=== PATIENT | male | born 1975 | race Caucasian/White ===

== ENCOUNTER 2021-03-09 02:46 | Emergency (ER) | payer OTHER ==
[2021-03-09 03:37] LABS: BASOPHIL 0.5 % (0-2); EOSINOPHIL 1.4 % (0-5); HCT 48.6 % (42.0-52.0); HGB 17.1 g/dl (13.2-18.0); MCHC 35.2 g/dL (32.0-36.0); MONOCYTE 9.7 % (0-12); MPV 9.9 fL (6.0-9.5); NEUTROPHIL 65.9 % (41-80); NRBC 0; PLT 300 K/uL (150-400); RBC 5.34 M/uL (4.70-6.00); RDW 13.6 % (11.5-14.0); WBC 21.6 K/uL (4.0-10.5)
[2021-03-09 03:48] LABS: INR 0.95 (0.9-1.2); PROTHROMBIN TIME 12.1 SECONDS (11.8-13.4); PTT 25.8 SECONDS (24.4-34.7)
[2021-03-09 03:54] LABS: ALBUMIN 3.7 g/dL (3.4-5.0); BILIRUBIN - TOTAL 0.2 mg/dL (0.2-1.0); CREATININE 0.93 mg/dL (0.67-1.17); GLOBULIN (CALCULATION) 3.7 g/dL; POTASSIUM 3.6 mmol/L (3.5-5.1); TOTAL PROTEIN 7.4 g/dL (6.4-8.2)
== END 2021-03-09 08:25 | disposition other institution (70) ==
LOC: FER 02:46
PROVIDERS: Emergency Medicine Emergency Medical Services
DX: I21.4 Non-ST elevation (NSTEMI) myocardial infarction (principal); I10 Essential (primary) hypertension; E78.5 Hyperlipidemia, unspecified; F17.210 Nicotine dependence, cigarettes, uncomplicated; Z82.49 Family history of ischemic heart disease and other diseases of the circulatory system; Z20.822 Contact with and (suspected) exposure to COVID-19; Z79.899 Other long term (current) drug therapy; Z88.1 Allergy status to other antibiotic agents; Z88.8 Allergy status to other drugs, medicaments and biological substances
CPT/HCPCS: 36415; 71045; 80053; 82550; 82553; 83690; 84484; 85025; 85379; 85610; 85730; 93005; J1644; J2270; J2405; J7030; U0002

== ENCOUNTER 2021-05-09 19:03 | Emergency (ER) | payer OTHER ==
[2021-05-09 19:31] LABS: BASOPHIL 0.5 % (0-2); EOSINOPHIL 1.6 % (0-5); HCT 48.6 % (42.0-52.0); HGB 16.8 g/dl (13.2-18.0); LYMPHOCYTE 25.3 % (15-48); MCH 31.1 pg (25.0-31.0); MCHC 34.6 g/dL (32.0-36.0); MONOCYTE 7.4 % (0-12); MPV 9.9 fL (6.0-9.5); NEUTROPHIL 64.8 % (41-80); NRBC 0; PLT 277 K/uL (150-400); RDW 13.5 % (11.5-14.0); WBC 13.5 K/uL (4.0-10.5)
[2021-05-09 19:47] LABS: ALBUMIN 3.9 g/dL (3.4-5.0); BILIRUBIN - TOTAL 0.5 mg/dL (0.2-1.0); BUN/CREAT RATIO (CALC) 13.6 RATIO; CREATININE 0.81 mg/dL (0.67-1.17); GLOBULIN (CALCULATION) 3.8 g/dL; POTASSIUM 3.1 mmol/L (3.5-5.1); TOTAL PROTEIN 7.7 g/dL (6.4-8.2)
== END 2021-05-09 22:45 | disposition home or self-care (01) ==
LOC: FER 19:03
PROVIDERS: Emergency Medicine
DX: R07.89 Other chest pain (principal); I10 Essential (primary) hypertension; I25.2 Old myocardial infarction; I25.10 Atherosclerotic heart disease of native coronary artery without angina pectoris; F17.200 Nicotine dependence, unspecified, uncomplicated; Z79.82 Long term (current) use of aspirin; Z79.02 Long term (current) use of antithrombotics/antiplatelets; Z79.899 Other long term (current) drug therapy
CPT/HCPCS: 36415; 71045; 80053; 84484; 85025; 85379

== ENCOUNTER 2021-11-09 20:32 | Emergency (ER) | payer OTHER ==
[2021-11-09 20:54] LABS: BASOPHIL 0.4 % (0-2); EOSINOPHIL 1.7 % (0-5); HCT 45.4 % (42.0-52.0); LYMPHOCYTE 20.8 % (15-48); MCHC 35.2 g/dL (32.0-36.0); MCV 90.8 fL (78.0-100.0); MONOCYTE 6.9 % (0-12); NEUTROPHIL 69.9 % (41-80); NRBC 0; PLT 266 K/uL (150-400); RDW 13.5 % (11.5-14.0); WBC 15.4 K/uL (4.0-10.5)
[2021-11-09 21:14] LABS: ALBUMIN 3.7 g/dL (3.4-5.0); BILIRUBIN - TOTAL 0.4 mg/dL (0.2-1.0); BUN/CREAT RATIO (CALC) 9.2 RATIO; CREATININE 0.87 mg/dL (0.67-1.17); GLOBULIN (CALCULATION) 3.5 g/dL; MAGNESIUM 1.2 mg/dL (1.8-2.4); POTASSIUM 2.9 mmol/L (3.5-5.1); TOTAL PROTEIN 7.2 g/dL (6.4-8.2)
[2021-11-09 21:59] LABS: CORONAVIRUS 2019 SARS-COV-2 NEGATIVE (NEGATIVE); INFLUENZA A NAA NEGATIVE (NEGATIVE)
[2021-11-10 01:05] LABS: BUN/CREAT RATIO (CALC) 9.2 RATIO; CREATININE 0.76 mg/dL (0.67-1.17); POTASSIUM 3.4 mmol/L (3.5-5.1)
== END 2021-11-10 01:34 | disposition home or self-care (01) ==
LOC: FER 20:32
PROVIDERS: Internal Medicine
DX: R07.89 Other chest pain (principal); E87.6 Hypokalemia; E83.42 Hypomagnesemia; I10 Essential (primary) hypertension; F17.210 Nicotine dependence, cigarettes, uncomplicated; Z28.310 Unvaccinated for COVID-19; Z20.822 Contact with and (suspected) exposure to COVID-19
CPT/HCPCS: 36415; 71045; 71250; 80048; 80053; 83690; 83735; 84145; 84484; 85025; 93005; J0696; J3475; J7030; J7050; U0002